=== PATIENT | male | born 1940 | race Caucasian/White ===

== ENCOUNTER → 2016-07-25 | Outpatient (CLI) | payer MEDICARE, OTHER | END | disposition home or self-care (01) | LOC: PCVCCLINIC 13:30 | PROVIDERS: ATTEND Internal Medicine | DX: I25.10 Atherosclerotic heart disease of native coronary artery without angina pectoris (principal); E78.00 Pure hypercholesterolemia, unspecified; I48.0 Paroxysmal atrial fibrillation; I34.1 Nonrheumatic mitral (valve) prolapse; I77.9 Disorder of arteries and arterioles, unspecified; G45.9 Transient cerebral ischemic attack, unspecified; N18.9 Chronic kidney disease, unspecified | CPT/HCPCS: 80061; 93005; G0463 ==

== ENCOUNTER → 2017-02-05 | Outpatient (CLI) | payer MEDICARE, OTHER | END | disposition home or self-care (01) | LOC: PCVCCLINIC 14:58 | PROVIDERS: ATTEND Internal Medicine | DX: I25.10 Atherosclerotic heart disease of native coronary artery without angina pectoris (principal); E78.5 Hyperlipidemia, unspecified; I48.0 Paroxysmal atrial fibrillation; I77.9 Disorder of arteries and arterioles, unspecified; I34.1 Nonrheumatic mitral (valve) prolapse; G45.9 Transient cerebral ischemic attack, unspecified; N18.9 Chronic kidney disease, unspecified; R00.0 Tachycardia, unspecified; I44.0 Atrioventricular block, first degree; Z79.899 Other long term (current) drug therapy | CPT/HCPCS: 36415; 80061; 93005; G0463; 85610 ==

== ENCOUNTER → 2017-08-07 | Outpatient (CLI) | payer MEDICARE, OTHER | END | disposition home or self-care (01) | LOC: PCVCCLINIC 14:27 | DX: I25.10 Atherosclerotic heart disease of native coronary artery without angina pectoris (principal); E78.5 Hyperlipidemia, unspecified; I48.0 Paroxysmal atrial fibrillation; I34.1 Nonrheumatic mitral (valve) prolapse; G45.9 Transient cerebral ischemic attack, unspecified; N18.9 Chronic kidney disease, unspecified; R94.31 Abnormal electrocardiogram [ECG] [EKG]; Z79.899 Other long term (current) drug therapy | CPT/HCPCS: 80061; 93005; G0463 ==

== ENCOUNTER → 2017-09-11 | Outpatient (CLI) | payer MEDICARE, OTHER | END | disposition home or self-care (01) | LOC: PCVCCLINIC 14:46 | DX: I25.118 Atherosclerotic heart disease of native coronary artery with other forms of angina pectoris (principal); E78.5 Hyperlipidemia, unspecified; I48.0 Paroxysmal atrial fibrillation; I34.1 Nonrheumatic mitral (valve) prolapse; I65.23 Occlusion and stenosis of bilateral carotid arteries; N18.9 Chronic kidney disease, unspecified; Z88.8 Allergy status to other drugs, medicaments and biological substances | CPT/HCPCS: 93005; G0463 ==

== ENCOUNTER → 2017-12-12 | Outpatient (CLI) | payer MEDICARE, OTHER | END | disposition home or self-care (01) | LOC: PCVCCLINIC 13:44 | PROVIDERS: ATTEND Internal Medicine | DX: I12.9 Hypertensive chronic kidney disease with stage 1 through stage 4 chronic kidney disease, or unspecified chronic kidney disease (principal); N18.9 Chronic kidney disease, unspecified; I25.10 Atherosclerotic heart disease of native coronary artery without angina pectoris; I48.0 Paroxysmal atrial fibrillation; E78.5 Hyperlipidemia, unspecified; I34.1 Nonrheumatic mitral (valve) prolapse; I65.23 Occlusion and stenosis of bilateral carotid arteries | CPT/HCPCS: 93005; G0463 ==

== ENCOUNTER → 2018-03-14 | Outpatient (CLI) | payer MEDICARE, OTHER | END | disposition home or self-care (01) | LOC: PCVCCLINIC 14:39 | PROVIDERS: ATTEND Internal Medicine | DX: I25.10 Atherosclerotic heart disease of native coronary artery without angina pectoris (principal); I48.0 Paroxysmal atrial fibrillation; E78.5 Hyperlipidemia, unspecified; I34.1 Nonrheumatic mitral (valve) prolapse; I65.23 Occlusion and stenosis of bilateral carotid arteries; N18.9 Chronic kidney disease, unspecified; K21.9 Gastro-esophageal reflux disease without esophagitis; E78.00 Pure hypercholesterolemia, unspecified | CPT/HCPCS: 36415; 80061; 93005; G0463 ==

== ENCOUNTER → 2018-10-04 | Outpatient (CLI) | payer MEDICARE, OTHER ==
--- NOTE | 2018-10-04 14:03 | PCVCIMAG ---
APPROVED REPORT Indications Stenosis Risk Factors Hypertension: TIA/CVA History Hyperlipidemia Doppler Spectral Velocity Analysis PSV / EDVPSV / EDV ECA (R) 109 / 5 cm/sECA (L) 113 / 10 cm/s dICA (R) 62 / 13 cm/sdICA (L) 69 / 15 cm/s Parker (R) 102 / 17 cm/smICA (L) 86 / 20 cm/s pICA (R) 91 / 21 cm/spICA (L) 61 / 16 cm/s Bulb (R) 86 / 10 cm/sBulb (L) 76 / 0 cm/s dCCA (R) 86 / 12 cm/sdCCA (L) 89 / 10 cm/s mCCA (R) 83 / 9 cm/smCCA (L) 109 / 13 cm/s Vert (R) 55 / 12 cm/sVert (L) 82 / 11 cm/s ICA/CCA 1.19 ICA/CCA 0.78 Basic Measurements Blood Pressure: Pulses: Right Left RightLeft Brachial(Sitting) 126/97lsZc357/70mmHgTemporal Real Time B-Mode Imaging Vert. (R)AntegradeVert. (L)Antegrade Findings The right carotid bulb has moderate calcified plaque. The right proximal internal carotid artery shows <40% stenosis. The right common carotid artery shows no significant stenosis. The right external carotid artery shows no significant stenosis. The left carotid bulb has moderate calcified plaque. The left proximal internal carotid artery shows <40% stenosis. The left common carotid artery shows no significant stenosis. The left external carotid artery shows no significant stenosis. Conclusion 1. Right internal carotid artery stenosis (<40%) 2. Left internal carotid artery stenosis (<40%) 3. Antegrade vertebral flow No change from from October 2015
--- NOTE | 2018-10-04 14:18 | PCVCIMAG ---
APPROVED REPORT Study performed: 10/04/2018 13:01:37 EXAM: Comprehensive 2D, Doppler, and color-flow Echocardiogram Patient Location: Echo lab Status: routine BSA: 1.82 HR: 56 bpmBP: 126/70 mmHg Rhythm: Bradycardia Other Information Study Quality: Adequate Indications Mitral Valve Prolapse CAD CABG, hx [place], mitral regurgitation 2D Dimensions IVSd: 11.12 (7-11mm) LVDd: 51.48 mm PWd: 8.70 (7-11mm)Ascending Ao: 31.91 (22-36mm) LVDs: 36.33 (25-40mm) Left Atrium: 45.41 (27-40mm) Aortic Root: 29.66 mm LV Single Plane 4CH: 52.71 % LV Single Plane 2CH: 41.97 % Biplane EF: 46.9 % Volumes Left Atrial Volume (Systole) Single Plane 4CH: 65.23 mLSingle Plane 2CH: 89.11 mL LA ESV Index: 43.00 mL/m2 Aortic Valve AoV Peak Jaden.: 1.30 m/s AO Peak Gr.: 6.80 mmHgLVOT Max P.44 mmHg LVOT Max V: 0.78 m/s Mitral Valve E/A Ratio: 1.6 MV Decel. Time: 187.97 ms MV E Max Jaden.: 0.71 m/s MV A Jaden.: 0.44 m/s MV Max Jaden.: 5.68 m/s MV Mean Jaden.: 4.38 m/s IVRT: 179.93 ms Pulmonary Valve PV Peak Jaden.: 1.12 m/sPV Peak Gr.: 5.03 mmHg Pulmonary Vein P Vein S: 0.44 m/sP Vein A: 0.25 m/s P Vein D: 0.61 m/sP Vein A Dur.: 141.9 msec P Vein S/D Ratio: 0.72 Tricuspid Valve TR Peak Jaden.: 2.45 m/s TR Peak Gr.: 24.01 mmHg TV Vmax: 0.50 m/s Left Ventricle The left ventricle is normal size. There is normal left ventricular wall thickness. Left ventricular systolic function is mild-moderately decreased. Hypokinesis of the base to mid portions of the inferior wall and inferoseptum. LVEF is 45%. Moderate diastolic dysfunction is present (pseudonormal filling). Right Ventricle The right ventricle is normal size. The right ventricular systolic function is normal. Atria Left atrium is moderately dilated. The right atrium size is normal. Aortic Valve The aortic valve is trileaflet, mildly calcified No aortic regurgitation is present. There is no aortic valvular stenosis. Mitral Valve The mitral valve is normal in structure. 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 No evidence of mitral valve stenosis. Tricuspid Valve The tricuspid valve is normal in structure. Mild tricuspid regurgitation with PAP of 30 mmHg. Pulmonic Valve The pulmonary valve is normal in structure. Trace pulmonic regurgitation. Great Vessels The aortic root is normal in size. IVC is normal in size and collapses >50% with inspiration. Pericardium There is no pericardial effusion. There is no pleural effusion. <Conclusion> Left ventricular systolic function is mild-moderately decreased. Hypokinesis of the base to mid portions of the inferior wall and inferoseptum. LVEF is 45%. Moderate diastolic dysfunction Left atrium is moderately dilated. The aortic valve is trileaflet, mildly calcified. No aortic regurgitation or stenosis Probable posterior leaflet prolapse with moderate to moderately severe regurgitation. The tricuspid valve is normal in structure. Mild tricuspid regurgitation with pulmonary artery pressure of 30 mmHg. There is no pericardial effusion.
== END | disposition home or self-care (01) ==
LOC: PCVCIMAG 12:44
PROVIDERS: ATTEND Internal Medicine
DX: I65.23 Occlusion and stenosis of bilateral carotid arteries (principal); E78.5 Hyperlipidemia, unspecified; I07.1 Rheumatic tricuspid insufficiency; I10 Essential (primary) hypertension; Z88.8 Allergy status to other drugs, medicaments and biological substances
CPT/HCPCS: 36415; 80061; 93005; 93306; 93880; G0463